=== PATIENT | female | born 1965 | race Caucasian/White ===

== ENCOUNTER 2023-07-31 18:19 | Inpatient (IN) | payer OTHER ==
[2023-07-31 18:46] VITALS: BMI 24.7
[2023-07-31] MEDS ORDERED: ACETAMINOPHEN 1000 MG/100 ML BAG IVPB ONE (19:02)
[2023-07-31] MEDS ORDERED: SODIUM CHLORIDE 0.9% 500 ML INFUS.BAG IV ONE (19:02)
[2023-07-31] MEDS ORDERED: ACETAMINOPHEN INJECTION 100 ML IVPB ONE (19:43)
[2023-07-31 19:56] LABS: BASO % 0.3 % (0-2.0); EOS % 1.1 % (0-4.5); HEMATOCRIT 41.2 % (32.4-45.2); HEMOGLOBIN 14.1 GM/dL (10.7-15.3); LYMPH % 12.2 % (8-40); MCH 28.3 pg (25.7-33.7); MCHC 34.2 g/dl (32.0-36.0); MEAN PLT VOLUME 8.6 fl (7.5-11.1); NEUT % 82.4 % (42.8-82.8); PLATELET COUNT 128 10^3/uL (134-434); RBC 4.97 M/mm3 (3.60-5.2); RDW 13.8 % (11.6-15.6); WHITE BLOOD COUNT 8.3 K/mm3 (4.0-10.0)
[2023-07-31 20:39] LABS: CHLORIDE 108 mmol/L (98-107); SODIUM 138 mmol/L (136-145)
[2023-07-31 20:41] LABS: BLOOD UREA NITROGEN 4.6 mg/dL (7-18); CALCIUM 8.6 mg/dL (8.5-10.1); CO2 27 mmol/L (21-32)
[2023-07-31 20:42] LABS: ALBUMIN 2.9 g/dl (3.4-5.0); GLUCOSE,RANDOM 94 mg/dL (74-106); MAGNESIUM 2.1 mg/dL (1.8-2.4)
[2023-07-31 20:45] LABS: CREATININE 0.8 mg/dL (0.55-1.3); PHOSPHOROUS 3.6 mg/dL (2.5-4.9); SGOT/AST 98 U/L (15-37)
[2023-07-31 20:46] LABS: BILIRUBIN,TOTAL 0.3 mg/dL (0.2-1); TOT PROT 7.7 g/dl (6.4-8.2)
[2023-07-31 20:47] LABS: ALK PHOS 130 U/L (45-117)
[2023-07-31 20:49] LABS: ANION GAP 2 MMOL/L (8-16); POTASSIUM 7.2 mmol/L (3.5-5.1); SGPT/ALT 45 U/L (13-61)
[2023-07-31 23:03] LABS: POTASSIUM 3.9 mmol/L (3.5-5.1)
[2023-07-31 23:06] LABS: BLOOD UREA NITROGEN 4.7 mg/dL (7-18); CALCIUM 8.3 mg/dL (8.5-10.1)
[2023-07-31 23:10] LABS: CREATININE 0.7 mg/dL (0.55-1.3)
[2023-08-01] MEDS ORDERED: SODIUM CHLORIDE 1,000 ML IV SCH (04:15)
[2023-08-01 09:13] LABS: BASO % 0.5 % (0-2.0); EOS % 2.6 % (0-4.5); HEMATOCRIT 43.5 % (32.4-45.2); HEMOGLOBIN 14.1 GM/dL (10.7-15.3); LYMPH % 26.1 % (8-40); MCH 27.9 pg (25.7-33.7); MCHC 32.4 g/dl (32.0-36.0); MEAN CELL VOLUME 86.1 fl (80-96); MEAN PLT VOLUME 9.8 fl (7.5-11.1); MONO % 7.2 % (3.8-10.2); NEUT % 63.6 % (42.8-82.8); PLATELET COUNT 132 10^3/uL (134-434); RBC 5.05 M/mm3 (3.60-5.2); RDW 13.1 % (11.6-15.6); WHITE BLOOD COUNT 7.6 K/mm3 (4.0-10.0)
[2023-08-01] MEDS: ENOXAPARIN NA (PORCINE) 40 MG/0.4 ML DISP.SYRIN SQ SCH (09:32)
[2023-08-01 09:37] LABS: ALBUMIN 3.2 g/dl (3.4-5.0); BLOOD UREA NITROGEN 6.4 mg/dL (7-18)
[2023-08-01 09:38] LABS: CALCIUM 8.8 mg/dL (8.5-10.1)
[2023-08-01 09:40] LABS: CREATININE 0.7 mg/dL (0.55-1.3)
[2023-08-01 09:42] LABS: BILIRUBIN,TOTAL 0.5 mg/dL (0.2-1); TOT PROT 7.6 g/dl (6.4-8.2)
[2023-08-01] MEDS ORDERED: METOCLOPRAMIDE HCL 10 MG TABLET (FP) PO PRN (14:01)
[2023-08-01] MEDS ORDERED: MAGNESIUM HYDROX 2400MG/30ML ORAL SUSPENSION 30 ML CUP PO PRN (14:01)
[2023-08-01] MEDS ORDERED: ALBUTEROL SO4 2.5/IPRATROPIUM 0.5 INH SOL 3 ML VIAL.NEB. NEB PRN (14:01)
[2023-08-01] MEDS ORDERED: BISACODYL 10 MG SUPP.RECT PR ONE (14:30)
[2023-08-01] MEDS: DEXTROSE 5%-NORMAL SALINE 1,000 ML IV SCH (15:05)
[2023-08-01] MEDS: POLYETHYLENE GLYCOL (HEALTHYLAX) 3350 17 GM PACKET PO SCH (21:51)
[2023-08-01] MEDS: clonazePAM 0.25 MG ODT TABLETS SL SCH (21:51)
[2023-08-01] MEDS: FAMOTIDINE 20 MG TABLET PO SCH (21:51)
[2023-08-01] MEDS: busPIRone HCL 5 MG TABLET PO SCH (21:52)
[2023-08-01] MEDS: MELATONIN 5 MG TABLETS PO SCH (21:53)
[2023-08-01] MEDS: GABAPENTIN 300 MG CAPSULE PO SCH (21:53)
[2023-08-01] MEDS: NORTRIPTYLINE HCL 10 MG CAPSULE PO SCH (21:54)
[2023-08-02] MEDS: DEXTROSE 5%-NORMAL SALINE 1,000 ML IV SCH ×2 (02:37→16:52)
[2023-08-02] MEDS: GABAPENTIN 300 MG CAPSULE PO SCH ×3 (05:36→22:24)
[2023-08-02] MEDS: busPIRone HCL 5 MG TABLET PO SCH ×3 (05:36→22:20)
[2023-08-02] MEDS: POLYETHYLENE GLYCOL (HEALTHYLAX) 3350 17 GM PACKET PO SCH ×3 (05:36→22:20)
[2023-08-02 09:52] LABS: HEMATOCRIT 41.2 % (32.4-45.2); HEMOGLOBIN 13.4 GM/dL (10.7-15.3); MCH 27.7 pg (25.7-33.7); MCHC 32.5 g/dl (32.0-36.0); MEAN CELL VOLUME 85.2 fl (80-96); MEAN PLT VOLUME 9.3 fl (7.5-11.1); PLATELET COUNT 132 10^3/uL (134-434); RBC 4.83 M/mm3 (3.60-5.2); RDW 13.4 % (11.6-15.6); WHITE BLOOD COUNT 5.5 K/mm3 (4.0-10.0)
[2023-08-02 10:03] LABS: POTASSIUM 3.6 mmol/L (3.5-5.1)
[2023-08-02 10:10] LABS: ALBUMIN 2.7 g/dl (3.4-5.0); BLOOD UREA NITROGEN 6.8 mg/dL (7-18)
[2023-08-02 10:13] LABS: CREATININE 0.7 mg/dL (0.55-1.3)
[2023-08-02 10:14] LABS: BILIRUBIN,TOTAL 0.5 mg/dL (0.2-1); TOT PROT 6.4 g/dl (6.4-8.2)
[2023-08-02] MEDS: CYCLOBENZAPRINE HCL 5 MG TABLET PO SCH (10:18)
[2023-08-02] MEDS: predniSONE 10 MG TABLET (UD) PO SCH (10:18)
[2023-08-02] MEDS: LACTULOSE 20 GM/30 ML UDC (FOR ORAL USE ONLY) PO SCH (10:18)
[2023-08-02] MEDS: SENNOSIDES 8.6MG TABLET (FP) PO SCH (10:19)
[2023-08-02] MEDS: amLODIPine BESYLATE 5 MG TABLET (FP) PO SCH (10:19)
[2023-08-02] MEDS: ENOXAPARIN NA (PORCINE) 40 MG/0.4 ML DISP.SYRIN SQ SCH (10:19)
[2023-08-02] MEDS: FAMOTIDINE 20 MG TABLET PO SCH ×2 (10:19→22:20)
[2023-08-02] MEDS: clonazePAM 0.25 MG ODT TABLETS SL SCH ×2 (10:19→22:20)
[2023-08-02] MEDS: NORTRIPTYLINE HCL 10 MG CAPSULE PO SCH (22:20)
[2023-08-02] MEDS: MELATONIN 5 MG TABLETS PO SCH (22:20)
[2023-08-03] MEDS: busPIRone HCL 5 MG TABLET PO SCH ×3 (05:03→22:03)
[2023-08-03] MEDS: POLYETHYLENE GLYCOL (HEALTHYLAX) 3350 17 GM PACKET PO SCH ×3 (05:03→22:03)
[2023-08-03] MEDS: GABAPENTIN 300 MG CAPSULE PO SCH ×3 (05:04→22:03)
[2023-08-03 09:07] LABS: BASO % 0.5 % (0-2.0); EOS % 3.8 % (0-4.5); HEMATOCRIT 42.8 % (32.4-45.2); HEMOGLOBIN 13.9 GM/dL (10.7-15.3); LYMPH % 24.3 % (8-40); MCH 27.8 pg (25.7-33.7); MCHC 32.4 g/dl (32.0-36.0); MEAN CELL VOLUME 85.7 fl (80-96); MEAN PLT VOLUME 9.5 fl (7.5-11.1); MONO % 10.2 % (3.8-10.2); NEUT % 61.2 % (42.8-82.8); PLATELET COUNT 124 10^3/uL (134-434); RBC 4.99 M/mm3 (3.60-5.2); RDW 13.2 % (11.6-15.6)
[2023-08-03 09:30] LABS: POTASSIUM 4.1 mmol/L (3.5-5.1)
[2023-08-03 09:42] LABS: ALBUMIN 2.9 g/dl (3.4-5.0); BLOOD UREA NITROGEN 5.1 mg/dL (7-18); CALCIUM 8.6 mg/dL (8.5-10.1)
[2023-08-03 09:43] LABS: TOT PROT 6.9 g/dl (6.4-8.2)
[2023-08-03 09:45] LABS: CREATININE 0.7 mg/dL (0.55-1.3)
[2023-08-03 09:46] LABS: BILIRUBIN,TOTAL 0.8 mg/dL (0.2-1)
[2023-08-03] MEDS: CYCLOBENZAPRINE HCL 5 MG TABLET PO SCH (09:50)
[2023-08-03] MEDS: predniSONE 10 MG TABLET (UD) PO SCH (09:50)
[2023-08-03] MEDS: amLODIPine BESYLATE 5 MG TABLET (FP) PO SCH (09:50)
[2023-08-03] MEDS: ENOXAPARIN NA (PORCINE) 40 MG/0.4 ML DISP.SYRIN SQ SCH (09:50)
[2023-08-03] MEDS: FAMOTIDINE 20 MG TABLET PO SCH ×2 (09:51→22:03)
[2023-08-03] MEDS: clonazePAM 0.25 MG ODT TABLETS SL SCH ×2 (10:12→22:03)
[2023-08-03] MEDS: LACTULOSE 20 GM/30 ML UDC (FOR ORAL USE ONLY) PO SCH (11:30)
[2023-08-03] MEDS: SENNOSIDES 8.6MG TABLET (FP) PO SCH (11:31)
[2023-08-03 15:28] LABS: EPI CELLS >36 /uL (0-25.1); HYALINE CASTS 0 /uL (0-3.1); PH,URINE 6.5 (5.0-8.0); URINE APPEARANCE CLEAR; URINE BACTERIA >9,000 /uL (0-1359); URINE BILIRUBIN NEGATIVE (NEGATIVE); URINE COLOR YELLOW; URINE GLUCOSE (UA) NEGATIVE (NEGATIVE); URINE KETONE NEGATIVE (NEGATIVE); URINE LEUK ESTERASE 3+ (NEGATIVE); URINE NITRITE NEGATIVE (NEGATIVE); URINE PROTEIN NEGATIVE (NEGATIVE); URINE RBC 4 /uL (0-23.9); URINE WBC 62 /uL (0-25.8)
[2023-08-03] MEDS: DEXTROSE 5%-NORMAL SALINE 1,000 ML IV SCH (16:20)
[2023-08-03] MEDS ORDERED: CEFTRIAXONE 1 GM in DEXTROSE 5%-WATER - 50 ML IVPB ONE (21:28)
[2023-08-03] MEDS ORDERED: ACETAMINOPHEN 1000 MG/100 ML BAG IVPB ONE (21:28)
[2023-08-03] MEDS: MELATONIN 5 MG TABLETS PO SCH (22:03)
[2023-08-03] MEDS: NORTRIPTYLINE HCL 10 MG CAPSULE PO SCH (22:03)
[2023-08-04] MEDS: POLYETHYLENE GLYCOL (HEALTHYLAX) 3350 17 GM PACKET PO SCH ×3 (05:18→21:11)
[2023-08-04] MEDS: busPIRone HCL 5 MG TABLET PO SCH ×3 (05:19→21:10)
[2023-08-04] MEDS: GABAPENTIN 300 MG CAPSULE PO SCH ×3 (05:19→21:10)
[2023-08-04] MEDS: amLODIPine BESYLATE 5 MG TABLET (FP) PO SCH (09:49)
[2023-08-04] MEDS: ENOXAPARIN NA (PORCINE) 40 MG/0.4 ML DISP.SYRIN SQ SCH (09:49)
[2023-08-04] MEDS: SENNOSIDES 8.6MG TABLET (FP) PO SCH (09:49)
[2023-08-04] MEDS: CYCLOBENZAPRINE HCL 5 MG TABLET PO SCH (09:49)
[2023-08-04] MEDS: clonazePAM 0.25 MG ODT TABLETS SL SCH ×2 (09:49→21:10)
[2023-08-04] MEDS: predniSONE 10 MG TABLET (UD) PO SCH (09:49)
[2023-08-04] MEDS: FAMOTIDINE 20 MG TABLET PO SCH ×2 (09:49→21:10)
[2023-08-04] MEDS: LACTULOSE 20 GM/30 ML UDC (FOR ORAL USE ONLY) PO SCH (09:50)
[2023-08-04] MEDS: MELATONIN 5 MG TABLETS PO SCH (21:10)
[2023-08-04] MEDS: NORTRIPTYLINE HCL 10 MG CAPSULE PO SCH (21:10)
[2023-08-05] MEDS: busPIRone HCL 5 MG TABLET PO SCH ×3 (05:45→22:20)
[2023-08-05] MEDS: GABAPENTIN 300 MG CAPSULE PO SCH ×3 (05:45→22:24)
[2023-08-05] MEDS: POLYETHYLENE GLYCOL (HEALTHYLAX) 3350 17 GM PACKET PO SCH ×3 (05:46→22:21)
[2023-08-05] MEDS: FAMOTIDINE 20 MG TABLET PO SCH ×2 (10:26→22:20)
[2023-08-05] MEDS: ENOXAPARIN NA (PORCINE) 40 MG/0.4 ML DISP.SYRIN SQ SCH (10:26)
[2023-08-05] MEDS: clonazePAM 0.25 MG ODT TABLETS SL SCH ×2 (10:26→22:20)
[2023-08-05] MEDS: SENNOSIDES 8.6MG TABLET (FP) PO SCH ×2 (10:26→10:28)
[2023-08-05] MEDS: amLODIPine BESYLATE 5 MG TABLET (FP) PO SCH (10:26)
[2023-08-05] MEDS: predniSONE 10 MG TABLET (UD) PO SCH (10:27)
[2023-08-05] MEDS: CYCLOBENZAPRINE HCL 5 MG TABLET PO SCH (10:27)
[2023-08-05] MEDS: LACTULOSE 20 GM/30 ML UDC (FOR ORAL USE ONLY) PO SCH (10:27)
[2023-08-05] MEDS: MELATONIN 5 MG TABLETS PO SCH (22:20)
[2023-08-05] MEDS: NORTRIPTYLINE HCL 10 MG CAPSULE PO SCH (22:24)
[2023-08-06] MEDS: busPIRone HCL 5 MG TABLET PO SCH ×3 (05:22→21:53)
[2023-08-06] MEDS: GABAPENTIN 300 MG CAPSULE PO SCH ×3 (05:23→21:53)
[2023-08-06] MEDS: POLYETHYLENE GLYCOL (HEALTHYLAX) 3350 17 GM PACKET PO SCH (07:19)
[2023-08-06] MEDS: ENOXAPARIN NA (PORCINE) 40 MG/0.4 ML DISP.SYRIN SQ SCH (10:50)
[2023-08-06] MEDS: CYCLOBENZAPRINE HCL 5 MG TABLET PO SCH (10:51)
[2023-08-06] MEDS: clonazePAM 0.25 MG ODT TABLETS SL SCH ×2 (10:51→21:54)
[2023-08-06] MEDS: amLODIPine BESYLATE 5 MG TABLET (FP) PO SCH (10:52)
[2023-08-06] MEDS: LACTULOSE 20 GM/30 ML UDC (FOR ORAL USE ONLY) PO SCH (10:52)
[2023-08-06] MEDS: predniSONE 10 MG TABLET (UD) PO SCH (10:52)
[2023-08-06] MEDS: FAMOTIDINE 20 MG TABLET PO SCH ×2 (10:52→21:54)
[2023-08-06] MEDS ORDERED: SIMETHICONE 80 MG TAB.CHEW (FP) PO PRN (14:24)
[2023-08-06] MEDS: NORTRIPTYLINE HCL 10 MG CAPSULE PO SCH (21:52)
[2023-08-06] MEDS: MELATONIN 5 MG TABLETS PO SCH (21:53)
[2023-08-07] MEDS: GABAPENTIN 300 MG CAPSULE PO SCH ×3 (05:51→22:20)
[2023-08-07] MEDS: busPIRone HCL 5 MG TABLET PO SCH ×3 (05:51→22:21)
[2023-08-07] MEDS: CYCLOBENZAPRINE HCL 5 MG TABLET PO SCH (11:02)
[2023-08-07] MEDS: predniSONE 10 MG TABLET (UD) PO SCH (11:02)
[2023-08-07] MEDS: amLODIPine BESYLATE 5 MG TABLET (FP) PO SCH (11:03)
[2023-08-07] MEDS: clonazePAM 0.25 MG ODT TABLETS SL SCH ×2 (11:03→22:20)
[2023-08-07] MEDS: ENOXAPARIN NA (PORCINE) 40 MG/0.4 ML DISP.SYRIN SQ SCH (11:03)
[2023-08-07] MEDS: FAMOTIDINE 20 MG TABLET PO SCH ×2 (11:03→22:22)
[2023-08-07] MEDS: LACTULOSE 20 GM/30 ML UDC (FOR ORAL USE ONLY) PO SCH (11:08)
[2023-08-07] MEDS: SIMETHICONE 80 MG TAB.CHEW (FP) PO SCH ×2 (17:04→22:21)
[2023-08-07 21:54] VITALS: RESP 18
[2023-08-07] MEDS: MELATONIN 5 MG TABLETS PO SCH (22:21)
[2023-08-07] MEDS: NORTRIPTYLINE HCL 10 MG CAPSULE PO SCH (22:22)
[2023-08-08] MEDS: GABAPENTIN 300 MG CAPSULE PO SCH ×2 (05:58→13:57)
[2023-08-08] MEDS: busPIRone HCL 5 MG TABLET PO SCH ×2 (05:58→13:57)
[2023-08-08] MEDS: ENOXAPARIN NA (PORCINE) 40 MG/0.4 ML DISP.SYRIN SQ SCH (09:42)
[2023-08-08] MEDS: FAMOTIDINE 20 MG TABLET PO SCH (09:42)
[2023-08-08] MEDS: amLODIPine BESYLATE 5 MG TABLET (FP) PO SCH (09:42)
[2023-08-08] MEDS: SIMETHICONE 80 MG TAB.CHEW (FP) PO SCH ×2 (09:42→13:57)
[2023-08-08] MEDS: CYCLOBENZAPRINE HCL 5 MG TABLET PO SCH (09:42)
[2023-08-08] MEDS: predniSONE 10 MG TABLET (UD) PO SCH (09:42)
[2023-08-08] MEDS: clonazePAM 0.25 MG ODT TABLETS SL SCH (09:42)
[2023-08-08] MEDS: LACTULOSE 20 GM/30 ML UDC (FOR ORAL USE ONLY) PO SCH (09:43)
[2023-08-08 11:08] LABS: HEMOGLOBIN 14.4 GM/dL (10.7-15.3); MCH 28.3 pg (25.7-33.7); MCHC 33.6 g/dl (32.0-36.0); MEAN CELL VOLUME 84.2 fl (80-96); MEAN PLT VOLUME 9.2 fl (7.5-11.1); PLATELET COUNT 154 10^3/uL (134-434); RDW 13.7 % (11.6-15.6); WHITE BLOOD COUNT 6.7 K/mm3 (4.0-10.0)
[2023-08-08 11:32] LABS: POTASSIUM 3.7 mmol/L (3.5-5.1)
[2023-08-08 11:36] VITALS: TEMP 97.6
[2023-08-08 12:02] LABS: CREATININE 0.8 mg/dL (0.55-1.3)
[2023-08-08 12:04] LABS: ALBUMIN 3.2 g/dl (3.4-5.0); BLOOD UREA NITROGEN 10.3 mg/dL (7-18); CALCIUM 9.3 mg/dL (8.5-10.1)
[2023-08-08 12:09] LABS: BILIRUBIN,TOTAL 0.4 mg/dL (0.2-1); TOT PROT 7.1 g/dl (6.4-8.2)
[2023-08-08 14:34] VITALS: BP 124/73; PULSE 107
== END 2023-08-08 14:39 | DRG 389 ==
LOC: JER 18:19 → JERBED 23:21 → OBSVTOIN 08-01 04:10 → J5S 08-01 05:21
PROVIDERS: ADMIT Internal Medicine; ATTEND Internal Medicine
DX: K56.7 Ileus, unspecified (principal); J98.11 Atelectasis; K59.00 Constipation, unspecified; J44.9 Chronic obstructive pulmonary disease, unspecified; K21.9 Gastro-esophageal reflux disease without esophagitis; G47.00 Insomnia, unspecified; D50.9 Iron deficiency anemia, unspecified; K52.9 Noninfective gastroenteritis and colitis, unspecified; F41.1 Generalized anxiety disorder; G62.9 Polyneuropathy, unspecified; F32.A Depression, unspecified; I10 Essential (primary) hypertension
CPT/HCPCS: 0241U-QW; 36415; 71045-TC-FY; 74018-TC-FY; 74177-TC; 80048; 80053; 81003; 83735; 84100; 85025; 85027; 87040; 87045; 87046; 87116; 87206; 87209; 87324; 87449; 87635; 93005; 93010; 97116-GP; 97162-GP; 99285-25; G0378; Q9967

== ENCOUNTER 2023-09-04 02:58 | Inpatient (IN) | payer OTHER ==
[2023-09-04 05:00] LABS: BASO % 0.3 % (0-2.0); EOS % 0.1 % (0-4.5); HEMATOCRIT 47.5 % (32.4-45.2); HEMOGLOBIN 15.4 GM/dL (10.7-15.3); LYMPH % 13.5 % (8-40); MCH 27.7 pg (25.7-33.7); MCHC 32.4 g/dl (32.0-36.0); MEAN CELL VOLUME 85.5 fl (80-96); MEAN PLT VOLUME 8.3 fl (7.5-11.1); MONO % 3.8 % (3.8-10.2); NEUT % 82.3 % (42.8-82.8); PLATELET COUNT 156 10^3/uL (134-434); RBC 5.56 M/mm3 (3.60-5.2); RDW 14.1 % (11.6-15.6); WHITE BLOOD COUNT 11.6 K/mm3 (4.0-10.0)
[2023-09-04 05:19] LABS: POTASSIUM 5.7 mmol/L (3.5-5.1)
[2023-09-04 05:22] LABS: ALBUMIN 3.4 g/dl (3.4-5.0); BLOOD UREA NITROGEN 18.9 mg/dL (7-18)
[2023-09-04 05:25] LABS: CREATININE 0.9 mg/dL (0.55-1.3)
[2023-09-04 05:26] LABS: BILIRUBIN,TOTAL 0.7 mg/dL (0.2-1)
[2023-09-04 05:27] LABS: TOT PROT 8.1 g/dl (6.4-8.2)
[2023-09-04] MEDS ORDERED: CEFTRIAXONE 1,000 MG in DEXTROSE 5%-WATER - 50 ML IVPB ONE (09:42)
[2023-09-04] MEDS ORDERED: AZITHROMYCIN IVPB 500 MG in DEXTROSE 5%-WATER - 250 ML IVPB ONE (09:43)
[2023-09-04 10:13] LABS: POTASSIUM 3.9 mmol/L (3.5-5.1)
[2023-09-04 10:14] LABS: CALCIUM 8.6 mg/dL (8.5-10.1)
[2023-09-04 10:15] LABS: BLOOD UREA NITROGEN 17.5 mg/dL (7-18)
[2023-09-04 10:18] LABS: CREATININE 0.7 mg/dL (0.55-1.3)
[2023-09-04] MEDS ORDERED: AZITHROMYCIN IVPB 500 MG/250 ML BAG IVPB ONE (11:33)
[2023-09-04] MEDS ORDERED: CEFTRIAXONE 1 GM/50 ML BAG ONE (11:33)
[2023-09-04] MEDS: amLODIPine BESYLATE 5 MG TABLET (FP) PO SCH (13:47)
[2023-09-04] MEDS ORDERED: amLODIPine BESYLATE 5 MG TABLET (FP) ONE (13:47)
[2023-09-04] MEDS ORDERED: busPIRone HCL 5 MG TABLET ONE (13:48)
[2023-09-04] MEDS: busPIRone HCL 10 MG TABLET (FP) PO SCH ×2 (13:48→21:52)
[2023-09-04] MEDS ORDERED: POLYETHYLENE GLYCOL (HEALTHYLAX) 3350 17 GM PACKET ONE (13:57)
[2023-09-04] MEDS: POLYETHYLENE GLYCOL (HEALTHYLAX) 3350 17 GM PACKET PO SCH (14:00)
[2023-09-04] MEDS: AMINO ACIDS/PROTEIN HYDROLYS 30 ML LIQUID.PKT PO SCH (16:36)
[2023-09-04] MEDS: predniSONE 20 MG TABLET (UD) PO SCH (16:36)
[2023-09-04] MEDS: ALBUTEROL SO4 2.5/IPRATROPIUM 0.5 INH SOL 3 ML VIAL.NEB. NEB SCH ×2 (16:40→20:18)
[2023-09-04] MEDS ORDERED: ALBUTEROL SO4 2.5/IPRATROPIUM 0.5 INH SOL 3 ML VIAL.NEB. NEB SCH (20:00)
[2023-09-04] MEDS: BUDESONIDE/FORMETEROL FUMARATE 80/4.5 mcg INHALER IH SCH (21:51)
[2023-09-04] MEDS: FAMOTIDINE 20 MG TABLET PO SCH (21:52)
[2023-09-04] MEDS: SENNOSIDES 8.6MG TABLET (FP) PO SCH (21:52)
[2023-09-04] MEDS: DOCUSATE SODIUM 100 MG CAPSULE (FP) PO SCH (21:52)
[2023-09-04] MEDS: carBAMazepine 100 MG TAB.CHEW PO SCH (21:53)
[2023-09-04] MEDS: clonazePAM 0.5 MG TABLET PO SCH (21:53)
[2023-09-05] MEDS: busPIRone HCL 10 MG TABLET (FP) PO SCH ×3 (05:46→21:48)
[2023-09-05] MEDS: ALBUTEROL SO4 2.5/IPRATROPIUM 0.5 INH SOL 3 ML VIAL.NEB. NEB SCH ×4 (07:37→19:30)
[2023-09-05] MEDS: AMINO ACIDS/PROTEIN HYDROLYS 30 ML LIQUID.PKT PO SCH ×2 (08:00→17:02)
[2023-09-05] MEDS: AZITHROMYCIN IVPB 250 MG in DEXTROSE 5%-WATER - 250 ML IVPB SCH (09:36)
[2023-09-05] MEDS: carBAMazepine 100 MG TAB.CHEW PO SCH ×2 (09:57→21:48)
[2023-09-05] MEDS ORDERED: CEFTRIAXONE 1 GM in DEXTROSE 5%-WATER - 50 ML IVPB SCH (10:00)
[2023-09-05] MEDS: predniSONE 20 MG TABLET (UD) PO SCH (10:01)
[2023-09-05] MEDS: amLODIPine BESYLATE 5 MG TABLET (FP) PO SCH (10:01)
[2023-09-05] MEDS: POLYETHYLENE GLYCOL (HEALTHYLAX) 3350 17 GM PACKET PO SCH ×2 (10:02→10:30)
[2023-09-05] MEDS: FAMOTIDINE 20 MG TABLET PO SCH ×2 (10:02→21:48)
[2023-09-05] MEDS: ENOXAPARIN NA (PORCINE) 40 MG/0.4 ML DISP.SYRIN SQ SCH (10:03)
[2023-09-05] MEDS: SENNOSIDES 8.6MG TABLET (FP) PO SCH ×2 (10:03→21:48)
[2023-09-05] MEDS: clonazePAM 0.5 MG TABLET PO SCH ×2 (10:03→21:48)
[2023-09-05] MEDS: BUDESONIDE/FORMETEROL FUMARATE 80/4.5 mcg INHALER IH SCH ×2 (10:05→21:50)
[2023-09-05 11:28] LABS: BASO % 0.2 % (0-2.0); EOS % 0.6 % (0-4.5); HEMATOCRIT 43.1 % (32.4-45.2); HEMOGLOBIN 14.2 GM/dL (10.7-15.3); MCH 27.6 pg (25.7-33.7); MCHC 32.9 g/dl (32.0-36.0); MEAN CELL VOLUME 84.1 fl (80-96); MEAN PLT VOLUME 8.6 fl (7.5-11.1); MONO % 4.7 % (3.8-10.2); NEUT % 78.5 % (42.8-82.8); PLATELET COUNT 125 10^3/uL (134-434); RBC 5.13 M/mm3 (3.60-5.2); RDW 14.4 % (11.6-15.6); WHITE BLOOD COUNT 13.2 K/mm3 (4.0-10.0)
[2023-09-05 11:51] LABS: POTASSIUM 3.5 mmol/L (3.5-5.1)
[2023-09-05 12:39] LABS: BLOOD UREA NITROGEN 18.5 mg/dL (7-18); CALCIUM 8.3 mg/dL (8.5-10.1); MAGNESIUM 2.2 mg/dL (1.8-2.4)
[2023-09-05 12:42] LABS: CREATININE 0.8 mg/dL (0.55-1.3); PHOSPHOROUS 2.4 mg/dL (2.5-4.9)
[2023-09-05 12:44] LABS: BILIRUBIN,TOTAL 0.5 mg/dL (0.2-1); TOT PROT 6.8 g/dl (6.4-8.2)
[2023-09-05] MEDS ORDERED: BISACODYL 5 MG TABLET.DR (FP) PO ONE (13:22)
[2023-09-05] MEDS: DOCUSATE SODIUM 100 MG CAPSULE (FP) PO SCH (21:47)
[2023-09-06] MEDS: busPIRone HCL 10 MG TABLET (FP) PO SCH ×3 (05:36→21:33)
[2023-09-06] MEDS: ALBUTEROL SO4 2.5/IPRATROPIUM 0.5 INH SOL 3 ML VIAL.NEB. NEB SCH ×4 (07:58→20:51)
[2023-09-06] MEDS ORDERED: PANTOPRAZOLE 40 MG TABLET PO SCH (10:00)
[2023-09-06 10:29] LABS: HEMATOCRIT 41.6 % (32.4-45.2); MCH 27.9 pg (25.7-33.7); MCHC 33.6 g/dl (32.0-36.0); MEAN CELL VOLUME 83.1 fl (80-96); MEAN PLT VOLUME 8.2 fl (7.5-11.1); PLATELET COUNT 127 10^3/uL (134-434); RBC 5.01 M/mm3 (3.60-5.2); RDW 14.2 % (11.6-15.6); WHITE BLOOD COUNT 9.1 K/mm3 (4.0-10.0)
[2023-09-06 10:36] LABS: POTASSIUM 5.3 mmol/L (3.5-5.1)
[2023-09-06 10:38] LABS: CALCIUM 8.2 mg/dL (8.5-10.1)
[2023-09-06 10:39] LABS: ALBUMIN 3.1 g/dl (3.4-5.0); BLOOD UREA NITROGEN 11.8 mg/dL (7-18)
[2023-09-06 10:42] LABS: CREATININE 1.1 mg/dL (0.55-1.3); PHOSPHOROUS 3.2 mg/dL (2.5-4.9)
[2023-09-06 10:43] LABS: BILIRUBIN,TOTAL 1.3 mg/dL (0.2-1); TOT PROT 7.2 g/dl (6.4-8.2)
[2023-09-06] MEDS: AMINO ACIDS/PROTEIN HYDROLYS 30 ML LIQUID.PKT PO SCH ×2 (10:45→17:50)
[2023-09-06] MEDS: predniSONE 20 MG TABLET (UD) PO SCH (10:45)
[2023-09-06] MEDS: clonazePAM 0.5 MG TABLET PO SCH ×2 (10:47→21:33)
[2023-09-06] MEDS: FAMOTIDINE 20 MG TABLET PO SCH (10:47)
[2023-09-06] MEDS: amLODIPine BESYLATE 5 MG TABLET (FP) PO SCH (10:48)
[2023-09-06] MEDS: carBAMazepine 100 MG TAB.CHEW PO SCH ×2 (10:48→21:34)
[2023-09-06] MEDS: ENOXAPARIN NA (PORCINE) 40 MG/0.4 ML DISP.SYRIN SQ SCH (10:49)
[2023-09-06] MEDS: POLYETHYLENE GLYCOL (HEALTHYLAX) 3350 17 GM PACKET PO SCH (10:49)
[2023-09-06] MEDS: SENNOSIDES 8.6MG TABLET (FP) PO SCH ×2 (10:50→21:33)
[2023-09-06] MEDS: AZITHROMYCIN IVPB 250 MG in DEXTROSE 5%-WATER - 250 ML IVPB SCH (10:51)
[2023-09-06] MEDS: BUDESONIDE/FORMETEROL FUMARATE 80/4.5 mcg INHALER IH SCH ×2 (10:51→21:33)
[2023-09-06] MEDS ORDERED: ONDANSETRON 4 MG/2 ML VIAL IVPUSH ONE (11:39)
[2023-09-06 14:01] LABS: BILIRUBIN,DIRECT 0.1 mg/dL (0.0-0.2)
[2023-09-06 17:04] LABS: POTASSIUM 3.9 mmol/L (3.5-5.1)
[2023-09-06 17:06] LABS: ALBUMIN 3.3 g/dl (3.4-5.0); BLOOD UREA NITROGEN 9.2 mg/dL (7-18); CALCIUM 8.4 mg/dL (8.5-10.1); MAGNESIUM 2.1 mg/dL (1.8-2.4)
[2023-09-06 17:09] LABS: CREATININE 0.8 mg/dL (0.55-1.3)
[2023-09-06 17:11] LABS: BILIRUBIN,TOTAL 0.6 mg/dL (0.2-1); TOT PROT 7.4 g/dl (6.4-8.2)
[2023-09-06] MEDS ORDERED: ONDANSETRON 4 MG/2 ML VIAL IVPUSH PRN (17:19)
[2023-09-06] MEDS ORDERED: SODIUM CHLORIDE 1,000 ML IV SCH (17:30)
[2023-09-06] MEDS: PANTOPRAZOLE SODIUM 40 MG VIAL IVPUSH SCH (21:33)
[2023-09-06] MEDS: DOCUSATE SODIUM 100 MG CAPSULE (FP) PO SCH (21:33)
[2023-09-07] MEDS: busPIRone HCL 10 MG TABLET (FP) PO SCH ×3 (06:11→21:21)
[2023-09-07] MEDS: ALBUTEROL SO4 2.5/IPRATROPIUM 0.5 INH SOL 3 ML VIAL.NEB. NEB SCH ×4 (07:49→19:34)
[2023-09-07] MEDS: AMINO ACIDS/PROTEIN HYDROLYS 30 ML LIQUID.PKT PO SCH ×2 (08:23→17:56)
[2023-09-07] MEDS: amLODIPine BESYLATE 5 MG TABLET (FP) PO SCH (09:48)
[2023-09-07] MEDS: clonazePAM 0.5 MG TABLET PO SCH ×2 (09:48→21:22)
[2023-09-07] MEDS: SENNOSIDES 8.6MG TABLET (FP) PO SCH ×2 (09:48→21:21)
[2023-09-07] MEDS: predniSONE 20 MG TABLET (UD) PO SCH (09:48)
[2023-09-07] MEDS: ENOXAPARIN NA (PORCINE) 40 MG/0.4 ML DISP.SYRIN SQ SCH (09:48)
[2023-09-07] MEDS: PANTOPRAZOLE SODIUM 40 MG VIAL IVPUSH SCH ×3 (09:49→21:28)
[2023-09-07] MEDS: POLYETHYLENE GLYCOL (HEALTHYLAX) 3350 17 GM PACKET PO SCH (09:49)
[2023-09-07] MEDS: carBAMazepine 100 MG TAB.CHEW PO SCH ×2 (09:52→21:21)
[2023-09-07] MEDS: BUDESONIDE/FORMETEROL FUMARATE 80/4.5 mcg INHALER IH SCH ×2 (09:53→21:22)
[2023-09-07] MEDS: AZITHROMYCIN IVPB 250 MG in DEXTROSE 5%-WATER - 250 ML IVPB SCH (09:59)
[2023-09-07 10:09] LABS: HEMATOCRIT 42.6 % (32.4-45.2); HEMOGLOBIN 14.6 GM/dL (10.7-15.3); MCH 28.6 pg (25.7-33.7); MCHC 34.2 g/dl (32.0-36.0); MEAN CELL VOLUME 83.6 fl (80-96); MEAN PLT VOLUME 8.5 fl (7.5-11.1); PLATELET COUNT 99 10^3/uL (134-434); RBC 5.09 M/mm3 (3.60-5.2); RDW 14.1 % (11.6-15.6); WHITE BLOOD COUNT 6.3 K/mm3 (4.0-10.0)
[2023-09-07 11:05] LABS: ALBUMIN 3.2 g/dl (3.4-5.0); BILIRUBIN,TOTAL 0.6 mg/dL (0.2-1); BLOOD UREA NITROGEN 7.4 mg/dL (7-18); CALCIUM 8.5 mg/dL (8.5-10.1); CREATININE 0.6 mg/dL (0.55-1.3); PHOSPHOROUS 2.4 mg/dL (2.5-4.9)
[2023-09-07 13:51] VITALS: BMI 28.5
[2023-09-07] MEDS: DOCUSATE SODIUM 100 MG CAPSULE (FP) PO SCH (21:22)
[2023-09-08] MEDS: busPIRone HCL 10 MG TABLET (FP) PO SCH ×3 (06:06→21:31)
[2023-09-08] MEDS: ALBUTEROL SO4 2.5/IPRATROPIUM 0.5 INH SOL 3 ML VIAL.NEB. NEB SCH ×4 (07:10→20:06)
[2023-09-08 09:53] LABS: HEMOGLOBIN 14.6 GM/dL (10.7-15.3); MCHC 33.2 g/dl (32.0-36.0); MEAN CELL VOLUME 84.2 fl (80-96); MEAN PLT VOLUME 8.4 fl (7.5-11.1); PLATELET COUNT 122 10^3/uL (134-434); RBC 5.23 M/mm3 (3.60-5.2); RDW 13.9 % (11.6-15.6); WHITE BLOOD COUNT 6.7 K/mm3 (4.0-10.0)
[2023-09-08] MEDS: SENNOSIDES 8.6MG TABLET (FP) PO SCH ×2 (10:06→21:31)
[2023-09-08] MEDS: amLODIPine BESYLATE 5 MG TABLET (FP) PO SCH (10:07)
[2023-09-08] MEDS: clonazePAM 0.5 MG TABLET PO SCH ×2 (10:07→21:31)
[2023-09-08] MEDS: predniSONE 20 MG TABLET (UD) PO SCH (10:07)
[2023-09-08 10:08] LABS: POTASSIUM 3.5 mmol/L (3.5-5.1)
[2023-09-08 10:13] LABS: CALCIUM 8.4 mg/dL (8.5-10.1)
[2023-09-08] MEDS: AZITHROMYCIN IVPB 250 MG in DEXTROSE 5%-WATER - 250 ML IVPB SCH ×2 (10:13→13:33)
[2023-09-08] MEDS: AMINO ACIDS/PROTEIN HYDROLYS 30 ML LIQUID.PKT PO SCH ×2 (10:13→16:57)
[2023-09-08 10:14] LABS: ALBUMIN 3.3 g/dl (3.4-5.0); MAGNESIUM 2.1 mg/dL (1.8-2.4)
[2023-09-08] MEDS: PANTOPRAZOLE SODIUM 40 MG VIAL IVPUSH SCH ×3 (10:14→21:31)
[2023-09-08] MEDS: POLYETHYLENE GLYCOL (HEALTHYLAX) 3350 17 GM PACKET PO SCH (10:14)
[2023-09-08 10:17] LABS: CREATININE 0.6 mg/dL (0.55-1.3); PHOSPHOROUS 2.4 mg/dL (2.5-4.9)
[2023-09-08 10:19] LABS: BILIRUBIN,TOTAL 0.6 mg/dL (0.2-1); TOT PROT 7.3 g/dl (6.4-8.2)
[2023-09-08] MEDS: carBAMazepine 100 MG TAB.CHEW PO SCH ×2 (11:06→21:30)
[2023-09-08] MEDS: BUDESONIDE/FORMETEROL FUMARATE 80/4.5 mcg INHALER IH SCH ×2 (11:07→21:31)
[2023-09-08] MEDS ORDERED: BISACODYL 10 MG SUPP.RECT PR ONE (18:45)
[2023-09-08] MEDS ORDERED: DEXTROSE 5%-0.45% SALINE 1,000 ML IV SCH (18:45)
[2023-09-08] MEDS: DOCUSATE SODIUM 100 MG CAPSULE (FP) PO SCH (21:30)
[2023-09-09] MEDS: ALBUTEROL SO4 2.5/IPRATROPIUM 0.5 INH SOL 3 ML VIAL.NEB. NEB SCH ×4 (08:05→20:14)
[2023-09-09] MEDS: AZITHROMYCIN IVPB 250 MG in DEXTROSE 5%-WATER - 250 ML IVPB SCH (09:15)
[2023-09-09] MEDS: PANTOPRAZOLE SODIUM 40 MG VIAL IVPUSH SCH ×2 (09:15→21:55)
[2023-09-09] MEDS ORDERED: DEXTROSE 5%-NORMAL SALINE 1,000 ML IV SCH (09:45)
[2023-09-09 10:56] LABS: HEMOGLOBIN 13.6 GM/dL (10.7-15.3); MCH 28.1 pg (25.7-33.7); MEAN CELL VOLUME 82.5 fl (80-96); MEAN PLT VOLUME 8.5 fl (7.5-11.1); PLATELET COUNT 122 10^3/uL (134-434); RBC 4.85 M/mm3 (3.60-5.2); RDW 13.9 % (11.6-15.6)
[2023-09-09 11:23] LABS: POTASSIUM 3.6 mmol/L (3.5-5.1)
[2023-09-09 11:31] LABS: ALBUMIN 2.9 g/dl (3.4-5.0); BLOOD UREA NITROGEN 6.9 mg/dL (7-18); PHOSPHOROUS 2.4 mg/dL (2.5-4.9)
[2023-09-09 11:32] LABS: BILIRUBIN,TOTAL 0.5 mg/dL (0.2-1); TOT PROT 6.4 g/dl (6.4-8.2)
[2023-09-09 11:33] LABS: CREATININE 0.6 mg/dL (0.55-1.3)
[2023-09-09] MEDS: clonazePAM 0.5 MG TABLET PO SCH ×2 (11:35→21:55)
[2023-09-09] MEDS: amLODIPine BESYLATE 5 MG TABLET (FP) PO SCH (11:35)
[2023-09-09] MEDS: busPIRone HCL 10 MG TABLET (FP) PO SCH ×3 (11:35→21:55)
[2023-09-09] MEDS: SENNOSIDES 8.6MG TABLET (FP) PO SCH ×2 (11:35→21:56)
[2023-09-09] MEDS: predniSONE 20 MG TABLET (UD) PO SCH (11:35)
[2023-09-09] MEDS: POLYETHYLENE GLYCOL (HEALTHYLAX) 3350 17 GM PACKET PO SCH (11:35)
[2023-09-09] MEDS: AMINO ACIDS/PROTEIN HYDROLYS 30 ML LIQUID.PKT PO SCH ×2 (11:35→17:56)
[2023-09-09] MEDS: carBAMazepine 100 MG TAB.CHEW PO SCH ×2 (11:36→21:56)
[2023-09-09] MEDS: BUDESONIDE/FORMETEROL FUMARATE 80/4.5 mcg INHALER IH SCH ×2 (11:37→21:56)
[2023-09-09] MEDS: DOCUSATE SODIUM 100 MG CAPSULE (FP) PO SCH (21:55)
[2023-09-10 07:19] VITALS: BP 128/76; PULSE 92; RESP 19; TEMP 98.1
== END 2023-09-10 05:00 | disposition short-term general hospital (02) | DRG 391 ==
LOC: JER 02:58 → JERBED 09:46 → J6S 15:32
PROVIDERS: ADMIT Internal Medicine; ATTEND Internal Medicine
DX: K22.5 Diverticulum of esophagus, acquired (principal); J69.0 Pneumonitis due to inhalation of food and vomit; K56.7 Ileus, unspecified; J44.1 Chronic obstructive pulmonary disease with (acute) exacerbation; K50.90 Crohn's disease, unspecified, without complications; E87.1 Hypo-osmolality and hyponatremia; J98.11 Atelectasis; J44.0 Chronic obstructive pulmonary disease with (acute) lower respiratory infection; F13.20 Sedative, hypnotic or anxiolytic dependence, uncomplicated; K22.0 Achalasia of cardia; K21.9 Gastro-esophageal reflux disease without esophagitis; D50.9 Iron deficiency anemia, unspecified; F41.8 Other specified anxiety disorders; N28.1 Cyst of kidney, acquired; I10 Essential (primary) hypertension; K59.00 Constipation, unspecified; M21.372 Foot drop, left foot; M21.371 Foot drop, right foot; R13.19 Other dysphagia; F44.4 Conversion disorder with motor symptom or deficit
CPT/HCPCS: 0241U-QW; 36415; 71045-TC-FY; 74177-TC; 74220-TC-FY; 76705-TC; 80048; 80053; 82248; 82550; 83735; 84100; 84484; 85025; 85027; 87635; 93005; 93010; 94640; 99285-25; Q9967